=== PATIENT | male | born 1995 | race American Indian/Alaskan Native ===

== ENCOUNTER 2017-06-26 01:58 | Emergency (ER) | payer OTHER ==
[2017-06-26 01:58] VITALS: BMI 34.8
[2017-06-26 02:03] VITALS: BP 121/88; PULSE 102; RESP 20; TEMP 97.9; O2SAT 97
[2017-06-26] MEDS ORDERED: Lidocaine 2% Inj (20ml) IJ STA (02:10)
[2017-06-26] MEDS ORDERED: TDAP Vaccine 0.5 mL Syr IM ONE (02:10)
--- NOTE | 2017-06-26 02:13 | ED PDOC ---
Arrival/HPI - General Chief Complaint: Abnormal Skin Integrity Time Seen by Provider: 06/26/17 02:10 - History of Present Illness Narrative History of Present Illness (Text): 06/26/17 02:12 21 year old male, with no significant past medical history, presents complaining of a 2cm laceration to the left thumb prior to arrival. Patient reportedly states he was grabbing a knife when he cut himself. Patient denies any fever, chills, nausea, vomiting, diarrhea, back pain, neck pain, headache, dizziness, suicidal/homicidal Ideation, visual/auditory hallucinations or any other complaints. Past Medical History - Provider Review Nursing Documentation Reviewed: Yes - Infectious Disease Hx of Infectious Diseases: None - Cardiac Hx Congestive Heart Failure: No - Pulmonary Hx Respiratory Disorders: No - Renal Hx Renal Disorder: No Hx Dialysis: No - Endocrine/Metabolic Hx Endocrine Disorders: No - Psychiatric Hx Anxiety: Yes Hx Substance Use: No - Anesthesia Hx Anesthesia: No Family/Social History - Physician Review Nursing Documentation Reviewed: Yes Family/Social History: No Known Family HX Smoking Status: Current Some Days Smoker Hx Alcohol Use: No Hx Substance Use: No Allergies/Home Meds Allergies/Adverse Reactions: Allergies No Known Allergies Allergy (Verified 06/26/17 01:59) Review of Systems - Physician Review All systems were reviewed & negative as marked: Yes - Review of Systems Constitutional: absent: Fevers Psychiatric: absent: Suicidal Ideation (/Homicidal Ideation) Physical Exam - Physical Exam Narrative Physical Exam (Text): Constitutional: No acute distress. Head: Normocephalic. Atraumatic. Eyes: PERRL. ENT: Moist mucous membranes. Neck: Supple. Cardiovascular: Regular rate. Chest: No tenderness. Respiratory: Clear to auscultation bilaterally. GI: Soft. Nontender. Nondistended. Back: No CVA tenderness. Musculoskeletal: No tenderness or swelling of extremities. Good capillary refill. Normal pulses. Neurovascularly intact Skin: No rash. 2cm laceration to plantar of the left 1st digit at the MPC joint. Neurologic: Alert, no focal deficit. Vital Signs Temp Pulse Resp BP Pulse Ox 06/26/17 02:02 97.9 F 102 H 20 121/88 97 Medical Decision Making ED Course and Treatment: 06/26/17 02:16 Plan: -- Boostrix Vaccine Inj -- Lidocaine 2% 20ML Vial -- Reassess and disposition Progress Notes: 06/26/17 02:41 PROCEDURE: LACERATION REPAIR Performed by the emergency provider Location: To the plantar left 1st digit Length: 2 cm Description: {"clean wound edges","no foreign bodies"} Distal CMS: Normal. No deficits. Neurovascularly intact. Anesthesia: Lidocaine 1% 20mL Preparation: The wound was cleaned with NS and Bet[place]. The area was prepped and draped in the usual sterile fashion. Exploration: The wound was explored and no foreign bodies were found. Procedure: The wound was closed with 5 o nylon. There was good approximation. In total, 5 were used. Post-Procedure: Good closure and hemostasis. The patient tolerated the procedure well and there were no complications. CSM remains intact. Post procedure dressing applied - Medication Orders Current Medication Orders: Discontinued Medications Lidocaine HCl (Lidocaine 2% 20ml Vial) 2 ml IJ ONCE STA Stop: 06/26/17 02:11 Last Admin: 06/26/17 02:41 Dose: Tetanus/Reduced Diphtheria/Acell Pertussis (Boostrix Vaccine Inj) 0.5 ml IM .ONCE ONE Stop: 06/26/17 02:11 Last Admin: 06/26/17 02:14 Dose: 0.5 ml - Scribe Statement Darrel Segura Provider Scribe Attestation: All medical record entries made by the Scribe were at my direction and personally dictated by me. I have reviewed the chart and agree that the record accurately reflects my personal performance of the history, physical exam, medical decision making, and the department course for this patient. I have also personally directed, reviewed, and agree with the discharge instructions and disposition. Disposition/Present on Arrival - Present on Arrival Any Indicators Present on Arrival: No History of DVT/PE: No History of Uncontrolled Diabetes: No Urinary Catheter: No History of Decub. Ulcer: No History Surgical Site Infection Following: None - Disposition Have Diagnosis and Disposition been Completed?: Yes Diagnosis: Laceration Disposition: HOME/ ROUTINE Disposition Time: 02:53 Patient Plan: Discharge Condition: STABLE Discharge Instructions (ExitCare): Laceration Repair Prescriptions: Bacitracin Ointment [Bacitracin] 1 appl TOP TID #1 tube Referrals: Richard Whatley JD, MD [Staff Provider] - Follow up with primary [facility] [place] [Outside] - Follow up with primary Forms: [employer] (Sing[place]an), WORK NOTE
== END 2017-06-26 03:03 | disposition home or self-care (01) ==
LOC: ED 01:58
DX: S61.012A Laceration without foreign body of left thumb without damage to nail, initial encounter (principal); W26.0XXA Contact with knife, initial encounter; Z23 Encounter for immunization; F17.200 Nicotine dependence, unspecified, uncomplicated

== ENCOUNTER 2018-01-21 12:36 | Emergency (ER) | payer OTHER ==
[2018-01-21 12:36] VITALS: BMI 34.8
--- NOTE | 2018-01-21 12:54 | ED PDOC ---
Arrival/HPI - General Time Seen by Provider: 01/21/18 12:43 Historian: Patient, Police - History of Present Illness Narrative History of Present Illness (Text): 01/21/18 12:51 A 22 year old male with no significant past medical history, presents to the em ergency department by [employer] for possible drug overdose from about one hour ago. Police reports patient was being arrested when he swallowed crack cocaine which police estimates amounted to 8-9 rocks. Patient denies swallowing any cocaine or any drug use. Patient reports experiencing a headache. LANTIGUA is not worst of life, not sudden in onset. Pt notes LANTIGUA only occurred after he was arrested on while on the ground. No FND. Pt notes tetanus shot within the last 5 years. Patient denies any fever, chills, shortness of breath, chest pain, diarrhea, nausea, vomiting, urinary symptoms, back pain, neck pain, dizziness, or any other complaints. Time/Duration: 1 hour Symptom Onset: Sudden Symptom Course: Unchanged Activities at Onset: Light Context: Street Past Medical History - Provider Review Nursing Documentation Reviewed: Yes - Infectious Disease Hx of Infectious Diseases: None - Cardiac Hx Congestive Heart Failure: No - Pulmonary Hx Respiratory Disorders: No - Renal Hx Renal Disorder: No Hx Dialysis: No - Endocrine/Metabolic Hx Endocrine Disorders: No - Psychiatric Hx Anxiety: Yes Hx Substance Use: No - Anesthesia Hx Anesthesia: No Family/Social History - Physician Review Nursing Documentation Reviewed: Yes Family/Social History: Unknown Family HX Smoking Status: Current Some Days Smoker Hx Alcohol Use: No Hx Substance Use: No Allergies/Home Meds Allergies/Adverse Reactions: Allergies No Known Allergies Allergy (Verified 06/26/17 01:59) Review of Systems - Physician Review All systems were reviewed & negative as marked: Yes - Review of Systems Constitutional: absent: Fevers, Night Sweats Respiratory: absent: SOB Cardiovascular: absent: Chest Pain Gastrointestinal: absent: Diarrhea, Nausea, Vomiting Genitourinary Male: absent: Urinary Output Changes Musculoskeletal: absent: Back Pain, Neck Pain Neurological: Headache. absent: Dizziness Physical Exam Temperature: Afebrile Pulse: Tachycardic Respiratory Rate: Normal Appearance: Positive for: Well-Appearing, Comfortable Pain Distress: Mild Mental Status: Positive for: Alert and Oriented X 3 - Systems Exam Head: Present: Atraumatic, Normocephalic, Abrasion (mild superficial abrasions to R eyebrow and R lip, no active bleeding noted. ). No: Laceration Pupils: Present: PERRL, Other (dilated, 5mm) Extroacular Muscles: Present: EOMI. No: Gaze Palsy, Entrapment Conjunctiva: Present: Normal. No: Injected Ears: Present: Normal Mouth: Present: Moist Mucous Membranes Nose (External): Present: Atraumatic Nose (Internal): Present: Normal Inspection, No Active Bleeding. No: Septal Hematoma Neck: Present: Normal Range of Motion. No: Meningeal Signs, MIDLINE TENDERNESS Respiratory/Chest: Present: Clear to Auscultation, Good Air Exchange. No: Respiratory Distress, Accessory Muscle Use Cardiovascular: Present: Normal S1, S2, Tachycardic. No: Murmurs Abdomen: Present: Normal Bowel Sounds. No: Tenderness, Distention, Peritoneal Signs, Rovsing's Sign Present Back: Present: Normal Inspection. No: CVA Tenderness, Midline Tenderness, Paraspinal Tenderness Upper Extremity: Present: Normal Inspection. No: Cyanosis, Edema Lower Extremity: Present: Normal Inspection. No: Edema Neurological: Present: GCS=15, CN II-XII Intact, Speech Normal, Motor Func Milagros sly Intact, Normal Sensory Function, Normal Cerebellar Funct Skin: Present: Dry, Normal Color, Hot, Other (pt noted to be perspiring). No: Rashes Psychiatric: Present: Alert, Oriented x 3, Normal Concentration Medical Decision Making ED Course and Treatment: 01/21/18 12:50 Impression: 22 year old male presenting to the emergency department brought in by [facility] for possible drug overdose. Per police pt was witnessed to have ingested crack-cocaine. Possible 8-9 rocks of Crack-cocaine per [facility]. Plan: -- CT of cervical spine without contrast -- CT of head without contrast -- EKG -- Labs -- CBC -- Chest X-ray -- IV Fluids -- Xray of abdomen -- Urinalysis -- Reassess and disposition Prior Visits: Notes and results from previous visits were reviewed. Patient was last seen in the emergency department on on 06/16/17 for a hand laceration and was discharged after a laceration repair. Progress Notes: 01/21/18 13:09 appreciate consult w/ [place]: Pt must be Obs for ~6 hours. EKG, Labs. Ativan if needed. No AC at this time given largely asymptomatic 01/21/18 13:25 EKG: Ordered, reviewed, and independently interpreted the EKG. Rate : 128 BPM Rhythm : Sinus tachycardia 01/21/18 14:00 Pt stated to RN and staff he is non-agreeable to CT, XR and labs. Given pt is tachy, under arrest + witnessed by police bedside for ingestion of suspected crack cocaine and upon re-exam continues to have dilated pupils likely ingestion w/ sympathomimetic. Re-consulted Poison control and they reccomed giving AC. Concern for multiple packet ingestion. Given pt is under influence and thus without capicity to deny treatment- will convince of RX importance. I spoke to pt regarding CT, XR, AC and labs as well as the possibility of massive OD and possible and he is now agreeable to treatment and workup. 01/21/18 16:37 CTH unremarkable slightly elevated WBC, glucose elevated, w/ out low bicarb: will give fluids. No indication of DKA. WBC likely 2/2 possible ingestion / acute reactive Released by police Per poison control will continue obs for ~6 hours while here for medical clearance. XR without radio-opaque body, ?finding on my read. CT ordered for ?ingestion and possible continued absorption of sympathomimetic Pending re-eval. 01/21/18 16:56 Procedure: Head CT without contrast Impression: Normal CT of the Head. No intracranial mass, hemorrhage or evidence of acute infarct. Dictator: Jeremy Pulliam MD Procedure: Chest X-ray Impression: No active disease. Dictator: Reggie Rashid MD Procedure: Cervical Spine CT without contrast Impression: No evidence of fracture or dislocation. Dictator: Jeremy Pulliam Procedure: Abdomen X-ray Impression: Unremarkable single-view abdomen. No visualized radiopaque foreign body. Dictator: Reggie Rashid MD 01/21/18 18:08 Pt in NAD with VS improved. No retained visible FB per CT. medically clear for d/c home no SI or HI. Endorsed Glucose findings w/ pt and family: to follow up outpt. wound dressed tetanus UTD, clear for d/c home - Scribe Statement The provider has reviewed the documentation as recorded by the Abdullahiibkaterina Garber All medical record entries made by the Scribe were at my direction and personally dictated by me. I have reviewed the chart and agree that the record accurately reflects my personal performance of the history, physical exam, medical decision making, and the department course for this patient. I have also personally directed, reviewed, and agree with the discharge instructions and disposition. Disposition/Present on Arrival - Present on Arrival Any Indicators Present on Arrival: No History of DVT/PE: No History of Uncontrolled Diabetes: No Urinary Catheter: No History Surgical Site Infection Following: None - Disposition Have Diagnosis and Disposition been Completed?: Yes Diagnosis: Evaluation by medical service required, Denial of substance abuse, Contusion Disposition: HOME/ ROUTINE Disposition Time: 18:10 Condition: GOOD Discharge Instructions (ExitCare): Taking Care of Bruises, Skin Abrasions, Drug Abuse and Drug Addiction (DC) Additional Instructions: Follow up with your primary care doctor. JENNIFER THAO, thank you for letting us take care of you today. Your provider was David Barragan and you were treated for POSS DRUG OVERDOSE/FALL. The emergency medical care you received today was directed at your acute symptoms. If you were prescribed any medication, please fill it and take as directed. It may take several days for your symptoms to resolve. Return to the Emergency Department if your symptoms worsen, do not improve, or if you have any other problems. Please contact your doctor or call one of the physicians/clinics you have been referred to that are listed on the Patient Visit Information form that is included in your discharge packet. Bring any paperwork you were given at discharge with you along with any medications you are taking to your follow up visit. Our treatment cannot replace ongoing medical care by a primary care provider outside of the emergency department. Thank you for allowing the [facility] team to be part of your care today. If you had an X-Ray or CT scan: A Radiologist will review the ED reading if any change in treatment is needed we will contact you. If you had a blood, urine, or wound culture: It will take several days for the results, if any change in treatment is needed we will contact you. If you had an STI test: It will take 48 hours for the results. Please call after 1 week if you have not heard back. Referrals: Marta Garcia MD [Medical Doctor] - Follow up with primary [facility] [Outside] - Follow up with primary [facility] [Outside] - Follow up with primary Forms: [employer] (Mauritanian)
[2018-01-21] MEDS ORDERED: Sodium Chloride 0.9% 1,000 ML IV SCH (13:15)
[2018-01-21 14:05] LABS: URINE BILIRUBIN NEGATIVE (NEGATIVE); URINE BLOOD TRACE-LYSED (NEGATIVE); URINE GLUCOSE (UA) >=1000 mg/dL (NEGATIVE); URINE LEUKOCYTE ESTERASE NEGATIVE Leu/uL (NEGATIVE); URINE PROTEIN 100 mg/dL (<30 mg/dL); URINE UROBILINOGEN 0.2 E.U./dL (<1 E.U./dL)
[2018-01-21 14:14] LABS: URINE APPEARANCE SL CLOUDY (CLEAR); URINE COLOR YELLOW (YELLOW)
[2018-01-21 14:18] LABS: URINE FINE GRANULAR CAST 0 - 2 /hpf (0-2); URINE RBC 0 - 2 /hpf (0-2); URINE WBC NEGATIVE /hpf (0-6)
[2018-01-21 14:24] LABS: BARBITURATES, UR NEGATIVE (NEGATIVE); BENZODIAZEPINES, UR NEGATIVE (NEGATIVE); OPIATES, UR NEGATIVE (NEGATIVE); PHENCYCLIDINE, UR NEGATIVE (NEGATIVE)
[2018-01-21 14:25] LABS: BASO # 0.03 K/mm3 (0.0-2.0); BASO % 0.2 % (0.0-3.0); EOS # 0.1 (0.0-0.7); EOS % 0.4 % (1.5-5.0); GRAN # 11.65 (1.4-6.5); GRAN % 69.3 % (50.0-68.0); HEMOGLOBIN 15.6 g/dL (14.0-18.0); LYMPH % 23.9 % (22.0-35.0); MEAN CELL VOLUME 83.3 fl (80.0-105.0); MEAN CORPUSCULAR HEMOGLOBIN 29.9 pg (25.0-35.0); MEAN CORPUSCULAR HGB CONC 35.9 g/dl (31.0-37.0); MEAN PLATELET VOLUME 11.8 fl (7.0-11.0); MONO % 6.2 % (1.0-6.0); RBC 5.22 10^6/uL (3.5-6.1); RED CELL DISTRIBUTION WIDTH 12.5 % (11.5-14.5); WHITE BLOOD COUNT 16.8 10^3/uL (4.5-11.0)
[2018-01-21 14:43] LABS: ACETAMINOPHEN < 10.0 ug/ml (10.0-20.0); SALICYLATE < 1 mg/dL (2.0-20.0)
[2018-01-21 14:48] LABS: ALB/GLOB RATIO 1.5 (1.1-1.8); ALBUMIN 5.4 g/dL (3.0-4.8); ALT/SGPT 85 U/L (7-56); AST/SGOT 50 U/L (17-59); BLOOD UREA NITROGEN 9 mg/dL (7-21); CALCIUM 10.1 mg/dL (8.4-10.5); GFR NON-AFRICAN AMERICAN > 60
--- NOTE | 2018-01-21 16:11 | CT ---
Date of service: 01/21/2018 PROCEDURE: CT HEAD WITHOUT CONTRAST. HISTORY: arrestesd COMPARISON: 01/31/2016 TECHNIQUE: Axial computed tomography images were obtained through the head/brain without intravenous contrast. Radiation dose: Total exam DLP = 891.41 mGy-cm. This CT exam was performed using one or more of the following dose reduction techniques: Automated exposure control, adjustment of the mA and/or kV according to patient size, and/or use of iterative reconstruction technique. FINDINGS: HEMORRHAGE: No intracranial hemorrhage. BRAIN: No mass effect or edema. No atrophy or chronic microvascular ischemic changes. VENTRICLES: Unremarkable. No hydrocephalus. CALVARIUM: Unremarkable. PARANASAL SINUSES: Unremarkable as visualized. No significant inflammatory changes. MASTOID AIR CELLS: Unremarkable as visualized. No inflammatory changes. OTHER FINDINGS: None. IMPRESSION: Normal CT of the Head. No intracranial mass, hemorrhage or evidence of acute infarct.
--- NOTE | 2018-01-21 16:15 | CT ---
Date of service: 01/21/2018 PROCEDURE: CT Cervical Spine without contrast HISTORY: fall COMPARISON: None available. TECHNIQUE: Axial computed tomography images were obtained of the cervical spine without the use of intravenous contrast. Coronal and sagittal reformatted images were created and reviewed. Radiation dose: Total exam DLP = 576.48 mGy-cm. This CT exam was performed using one or more of the following dose reduction techniques: Automated exposure control, adjustment of the mA and/or kV according to patient size, and/or use of iterative reconstruction technique. FINDINGS: VERTEBRAE: Vertebral bodies are maintained in height. The atlantoaxial articulation and odontoid process are intact. Normal vertebral alignment is maintained. DISCS/SPINAL CANAL/NEURAL FORAMINA: No significant central canal or neural foraminal stenosis. Discs heights are grossly preserved. PARASPINAL SOFT TISSUES: Prominent palatine tonsils common nonspecific. OTHER FINDINGS: None. IMPRESSION: No evidence of fracture or dislocation.
--- NOTE | 2018-01-21 16:27 | RAD ---
Date of service: 01/21/2018 HISTORY: crack ingestion COMPARISON: No prior. FINDINGS: LUNGS: No active pulmonary disease. PLEURA: No significant pleural effusion identified, no pneumothorax apparent. CARDIOVASCULAR: No atherosclerotic calcification present Normal. OSSEOUS STRUCTURES: No significant abnormalities. VISUALIZED UPPER ABDOMEN: Normal. OTHER FINDINGS: None. IMPRESSION: No active disease.
--- NOTE | 2018-01-21 16:27 | RAD ---
Date of service: 01/21/2018 HISTORY: crack ingestion COMPARISON: None available. FINDINGS: BOWEL: Normal. No obstruction. No free air. BONES: Normal. OTHER FINDINGS: None. IMPRESSION: Unremarkable single-view abdomen. No visualized radiopaque foreign body.
--- NOTE | 2018-01-21 17:48 | CT ---
Date of service: 01/21/2018 PROCEDURE: CT Abdomen and Pelvis without intravenous contrast HISTORY: Possible ingested foreign body COMPARISON: None. TECHNIQUE: Unenhanced. Neither IV nor oral contrast administered Radiation dose: Total exam DLP = 1213.70 mGy-cm. This CT exam was performed using one or more of the following dose reduction techniques: Automated exposure control, adjustment of the mA and/or kV according to patient size, and/or use of iterative reconstruction technique. FINDINGS: LOWER THORAX: Unremarkable. LIVER: Unremarkable. No gross lesion or ductal dilatation. GALLBLADDER AND BILE DUCTS: Unremarkable. PANCREAS: Unremarkable. No gross lesion or ductal dilatation. SPLEEN: Unremarkable. ADRENALS: Unremarkable. No mass. KIDNEYS AND URETERS: Unremarkable. No hydronephrosis. No solid mass. VASCULATURE: Unremarkable. No aortic aneurysm. No atherosclerotic calcification or mural plaque present. BOWEL: Excessive fluid identified in the stomach, small bowel and colon consistent with treatment for suspected ingested material. No visible foreign body in the alimentary tract. APPENDIX: A normal appendix is visualized in it's entirety. PERITONEUM: Unremarkable. No free fluid. No free air. LYMPH NODES: Unremarkable. No enlarged lymph nodes. BLADDER: Unremarkable. REPRODUCTIVE: Unremarkable. BONES: No acute fracture. OTHER FINDINGS: None. IMPRESSION: No significant or acute findings to account for/ related to the clinical presentation. No visualized radiopaque foreign body.
[2018-01-21 18:05] VITALS: BP 147/88
[2018-01-21 19:14] VITALS: PULSE 99; RESP 18; TEMP 98.1; O2SAT 97
--- NOTE | 2018-01-22 10:09 | CARD ---
APPROVED REPORT Date of service: 01/21/2018 EKG Measurement Heart [id number] <Conclusion> Sinus tachycardia RVCD Prolonged QTc
== END 2018-01-21 18:10 | disposition home or self-care (01) ==
LOC: ED 12:36
DX: Z04.89 Encounter for examination and observation for other specified reasons (principal); S00.83XA Contusion of other part of head, initial encounter; X58.XXXA Exposure to other specified factors, initial encounter; Y92.9 Unspecified place or not applicable
CPT/HCPCS: 70450; 71045; 72125; 74018; 74176; 80053; 80320; 80324; 80329; 80345; 80346; 80349; 80353; 80358; 80361; 81001; 83735; 83992; 85025; 93005; 99283; J7030